=== PATIENT | female | born 1955 | race Caucasian/White ===

== ENCOUNTER 2016-11-22 12:38 | Emergency (ER) | payer OTHER ==
[~2016-11-22] VITALS: Ht 152.4 cm; Wt 65.5 kg
[~2016-11-22 12:38] MED LIST: ASPI81TA3 PO; ATEN50TA PO; SIMV20TA PO
[2016-11-22 13:55] VITALS: Ht 152.4 cm; Wt 65.5 kg
--- NOTE | 2016-11-22 14:14 | EN ---
Date/Time of Note Date/Time of Note DATE: 11/22/16 TIME: 14:13 ER Progress Note Patient was seen and examined in RME. Patient will be sent to ED2 for more evaluation LENARD TUCKER PA-C Nov 22, 2016 14:14
--- NOTE | 2016-11-22 15:27 | ERD ---
ER Documentation Chief Complaint Date/Time DATE: 11/22/16 TIME: 15:24 Chief Complaint RIGHT EAR PAIN HPI 61-year-old female with no history of diabetes comes emergency room with right ear pain that has been ongoing for months now. This patient states that she did have URI symptoms, she was treated with amoxicillin by her primary care physician, she subsequently developed right ear pain that is in the inner ear and is a pressure-like sensation that radiated to the back of her ear. She has not had any fevers, chills or drainage or trauma. No vomiting or diarrhea. ROS All systems reviewed and are negative except as per history of present illness. Medications Home Meds Active Scripts Cetirizine Hcl* (Zyrtec*) 10 Mg Capsule, 10 MG PO DAILY, #20 TAB Prov:LJ KENYON PA-C 11/22/16 Hydrocodone/Acetaminophen ([place] 5-325 Tablet) 1 Each Tablet, 1 TAB PO Q6H Y for PAIN, #15 TAB Prov:LJ KENYON PA-C 11/22/16 Amoxicillin/Potassium Clav (Amox-Clav 875-125 mg Tablet) 875-125 mg Tab, 1 TAB PO BID for 7 Days, #14 TAB Prov:LJ KENYON PA-C 11/22/16 Aspirin (Aspirin) 81 Mg Chew, 81 MG PO DAILY, #30 TAB Prov:LOBITO MEJIA MD 07/27/16 Reported Medications Atenolol* (Atenolol*) 50 Mg Tablet, 50 MG PO DAILY, #30 TAB 07/25/16 Simvastatin* (Zocor*) 20 Mg Tablet, 20 MG PO QHS, #30 TAB 07/25/16 Allergies Allergies: Coded Allergies: No Known Allergy (Unverified , 11/22/16) PMhx/Soc History of Surgery: Yes (RT EAR ) Anesthesia Reaction: No Hx Neurological Disorder: No Hx Respiratory Disorders: No Hx Cardiac Disorders: Yes (HTN) Hx Psychiatric Problems: No Hx Miscellaneous Medical Probl: No Hx Alcohol Use: No Hx Substance Use: No Hx Tobacco Use: Yes (3 cigaretts a day) Smoking Status: Current every day smoker Physical Exam Vitals Vital Signs Date Time Temp Pulse Resp B/P Pulse Ox O2 Delivery O2 Flow Rate FiO2 11/22/16 13:55 98.3 64 19 140/76 97 Physical Exam General: Well-developed, well-nourished. The patient appears in no acute distress. HEENT: Head is normocephalic, atraumatic. No scleral icterus. Pupils are equal , round, and reactive. Oral mucous membranes are moist. No pharyngeal erythema. Right TM is bulging, nonerythematous, no otorrhea, or drainage. No fever or chills. No distinct mastoid tenderness, diffuse tenderness over scalp superficially. Left ear is normal Neck: Supple. Nontender. Lungs: Clear to auscultation. Normal air movement. Heart: Regular rate and rhythm. S1 and S2 are normal. No murmurs, gallops, or rubs. Abdomen: Soft, nontender, nondistended. Bowel sounds are normoactive. Extremities: No clubbing or cyanosis. Normal pulses. Moving extremities x 4. No weakness. Neurologic: Alert and oriented 3. No focal deficits. Skin: Normal turgor. No rash or lesions. Results 24 hrs Current Medications Medications (Trade) Dose Ordered Sig/Mady Route PRN Reason Start Time Stop Time Status Last Admin Dose Admin Acetaminophen/ Hydrocodone Bitart ([place] (5/325)) 1 tab ONCE ONCE PO 11/22/16 15:30 11/22/16 15:31 DC 11/22/16 15:38 PROCEDURE: CT temporal bones without contrast CLINICAL INDICATION: Right ear pain TECHNIQUE: CT of the temporal bones without contrast was performed on a multidetector CT scanner, with multiplanar reformats. One or more of the following dose reduction techniques were used: Automated exposure control, adjustment in mA and / or kV according to patient size, use of iterative reconstructive technique. CTDIvol = 39 mGy and DLP = 378 mGy-cm. COMPARISON: None available FINDINGS: Right temporal bone: The external auditory canal is patent. The tympanic membrane is thin. The mastoid air cells and middle ear cavity are clear. There is a stapes prosthesis , and place the rest of the ossicles are intact. The scutum is intact. The bony labyrinth structures are within normal limits and the otic capsule is intact. The vestibular aqueduct is not enlarged. There is high-riding jugular bulb with small focal dehiscence posteriorly. There is no dehiscence into the middle ear. The internal auditory canal is normal in caliber. Left temporal bone: The external auditory canal is patent. The tympanic membrane is thin. The mastoid air cells and middle ear cavity are clear. The ossicles and scutum are intact. The bony labyrinth structures are within normal limits and the otic capsule is intact. The vestibular aqueduct is not enlarged. The internal auditory canal is normal in caliber. There are bilateral maxillary sinus air fluid levels, partial bilateral ethmoid air cell opacification with secretions seen on the right posteriorly and minimal left sphenoid sinus secretions. There is mucosal thickening at the right frontal recess. IMPRESSION: 1. Mastoids and middle ears clear bilaterally. 2. Right stapes prosthesis in place. 3. High-riding right jugular bulb with small focal dehiscence posteriorly. 4. Paranasal sinus disease described above. RPTAT: VV .Ta Warren MD, MD Date Time Electronically viewed and signed by .Ta Warren MD, MD on 11/22/2016 15:57 Procedures/MDM ED course: Patient was given [place] for pain. 61-year-old female comes to the ER with right-sided ear pain for a month now, her primary care physician has referred her to the ER. She received a CT scan of her orbit temporal bones, there is no evidence of mastoiditis, there is sinus disease described. Patient will be treated with Augmentin as well as [place] and loratadine. There are no signs of sepsis, meningitis, deep space infection. Departure Diagnosis: Primary Impression: Sinusitis Condition: LJ Darden PA-C Nov 22, 2016 15:27
[2016-11-22] MEDS ORDERED: HYDROCODONE/APAP (5/325) TAB PO ONE (15:30)
--- NOTE | 2016-11-22 15:57 | RADRPT ---
PROCEDURE: CT temporal bones without contrast CLINICAL INDICATION: Right ear pain TECHNIQUE: CT of the temporal bones without contrast was performed on a multidetector CT scanner, with multiplanar reformats. One or more of the following dose reduction techniques were used: Autom ated exposure control, adjustment in mA and / or kV according to patient size, use of iterative waqas nstructive technique. CTDIvol = 39 mGy and DLP = 378 mGy-cm. COMPARISON: None available FINDINGS: Right temporal bone: The external auditory canal is patent. The tympanic membrane is thin. The mastoid air cells and mi ddle ear cavity are clear. There is a stapes prosthesis, and place the rest of the ossicles are int act. The scutum is intact. The bony labyrinth structures are within normal limits and the otic cap jeremy is intact. The vestibular aqueduct is not enlarged. There is high-riding jugular bulb with sma ll focal dehiscence posteriorly. There is no dehiscence into the middle ear. The internal auditory canal is normal in caliber. Left temporal bone: The external auditory canal is patent. The tympanic membrane is thin. The mastoid air cells and mi ddle ear cavity are clear. The ossicles and scutum are intact. The bony labyrinth structures are w ithin normal limits and the otic capsule is intact. The vestibular aqueduct is not enlarged. The in ternal auditory canal is normal in caliber. There are bilateral maxillary sinus air fluid levels, partial bilateral ethmoid air cell opacificati on with secretions seen on the right posteriorly and minimal left sphenoid sinus secretions. There is mucosal thickening at the right frontal recess. IMPRESSION: 1. Mastoids and middle ears clear bilaterally. 2. Right stapes prosthesis in place. 3. High-riding right jugular bulb with small focal dehiscence posteriorly. 4. Paranasal sinus disease described above. RPTAT: VV .Ta Warren MD, MD Date Time Electronically viewed and signed by .Ta Warren MD, MD on 11/22/2016 15:57 .O/
[2016-11-22] MEDS ORDERED: AMOX1TAB10 PO (16:06)
[2016-11-22] MEDS ORDERED: HYDR-906 PO (16:06)
[2016-11-22] MEDS ORDERED: CETI10CA PO (16:07)
[2016-11-22 16:29] VITALS: BP 135/73; PULSE 79; RESP 16
== END 2016-11-22 16:30 | disposition home or self-care (01) ==
LOC: FTE 12:38
DX: J01.90 Acute sinusitis, unspecified (principal); I10 Essential (primary) hypertension; F17.210 Nicotine dependence, cigarettes, uncomplicated; Z79.82 Long term (current) use of aspirin
CPT/HCPCS: 70480; Z7502; Z7610

== ENCOUNTER 2017-08-11 08:52 | Day surgery (SDC) | payer OTHER ==
[2017-08-11] VITALS (33 sets, daily range): BP systolic 122–147; BP diastolic 63–75; PULSE 58–64; RESP 11–18; Ht 152.4 cm; Wt 66.4 kg
[~2017-08-11] VITALS: Ht 152.4 cm; Wt 66.4 kg
[~2017-08-11 08:52] MED LIST changes: +AMOX1TAB10 PO; +CETI10CA PO; +HYDR-906 PO
[2017-08-11] MEDS ORDERED: ATEN100T PO (09:07)
[2017-08-11] MEDS ORDERED: SOD CHLORIDE 0.45% 1,000 ML IV ONE (09:30)
[2017-08-11] MEDS ORDERED: FAMOTIDINE 20 MG TAB PO ONE (09:30)
[2017-08-11] MEDS ORDERED: DIPHENHYDRAMINE 50 MG CAP PO ONE (09:30)
[2017-08-11] MEDS ORDERED: DIAZEPAM 5 MG TAB PO ONE (09:30)
[2017-08-11] MEDS ORDERED: LIDOCAINE 1% (MDV) 20 ML INJ ONE (09:39)
[2017-08-11] MEDS ORDERED: MIDAZOLAM 1 MG/ML 2 ML INJ ONE (09:39)
[2017-08-11] MEDS ORDERED: HEPARIN 1000 UNITS/ML 10 ML INJ ONE (09:39)
[2017-08-11] MEDS ORDERED: FENTAnyl 50 MCG/ML VIAL ONE (09:39)
[2017-08-11] MEDS ORDERED: NITROGLYCERIN (IC) 100 MCG/ML INJ ONE (09:39)
[2017-08-11] MEDS ORDERED: VERAPAMIL 5 MG INJ ONE (09:39)
[2017-08-11 09:42] LABS: BASOPHILS % 0.5 % (0.0-2.0); EOSINOPHILS # 0.5 10^3/ul (0.0-0.5); HEMATOCRIT 46.7 % (37.0-47.0); HEMOGLOBIN 15.2 g/dl (12.0-16.0); LYMPHOCYTES # 2.6 10^3/ul (0.8-2.9); LYMPHOCYTES % 33.1 % (15.0-51.0); MEAN CORPUSCULAR HEMOGLOBIN 28.6 pg (29.0-33.0); MEAN CORPUSCULAR HGB CONC 32.5 g/dl (32.0-37.0); MEAN CORPUSCULAR VOLUME 87.9 fl (82.0-101.0); MEAN PLATELET VOLUME 10.7 fl (7.4-10.4); MONOCYTE # 0.7 10^3/ul (0.3-0.9); MONOCYTES % 8.2 % (0.0-11.0); NEUTROPHIL # 4.1 10^3/ul (1.6-7.5); NEUTROPHILS % 51.9 % (39.0-77.0); PLATELET COUNT 272 10^3/UL (140-415); RED BLOOD COUNT 5.31 10^6/ul (4.20-5.40); RED CELL DISTRIBUTION WIDTH 13.1 % (11.5-14.5); WHITE BLOOD COUNT 7.9 10^3/ul (4.8-10.8)
--- NOTE | 2017-08-11 10:06 | RADRPT ---
PROCEDURE: XR Chest 1 View. CLINICAL INDICATION: Abnormal breath sounds, preop. TECHNIQUE: AP view of the chest was obtained. COMPARISON: CR CHEST 07/25/2016 FINDINGS: The cardiomediastinal silhouette is within normal limits. Atelectasis is noted at the lung bases. No consolidations are identified. No pneumothorax is seen. Osseous structures are intact. IMPRESSION: Atelectasis at the lung bases. RPTAT: AA .John Thomas MD, Date Time Electronically viewed and signed by .John Thomas MD, on 08/11/2017 10:06 .P/
[2017-08-11 10:07] LABS: INR 0.95; PARTIAL THROMBOPLASTIN TIME 26.3 Sec (25.0-35.0); PROTIME 12.7 Sec (12.2-14.2)
[2017-08-11 10:12] LABS: CHOL/HDL RATIO 6.3 RATIO
[2017-08-11 10:20] LABS: CREATININE 1.16 mg/dl (0.44-1.00); POTASSIUM 3.9 mmol/L (3.5-5.1)
[2017-08-11] MEDS ORDERED: SOD CHLORIDE 0.9% 1,000 ML IV SCH (10:55)
[2017-08-11] MEDS ORDERED: ACETAMINOPHEN 325 MG TAB PO PRN (11:00)
[2017-08-11] MEDS ORDERED: AL HYDROX/MG HYDROX/SIMETH 30 ML CUP PO PRN (11:00)
[2017-08-11] MEDS ORDERED: ONDANSETRON 4 MG INJ IV PRN (11:00)
[2017-08-11] MEDS ORDERED: morphine 2 MG INJ IV PRN (11:00)
--- NOTE | 2017-08-11 11:04 | SIPON ---
Date/Time of Note Date/Time of Note DATE: 08/11/17 TIME: 11:02 Operative Report Preoperative Diagnosis 1. Chest pain 2.abnl MPI Postoperative Diagnosis 1.NOn-obstructive cad Operation/Procedure Performed 1.[facility] Surgeon see signature line intellectual property legal assistant 1.Aram Anesthesia: moderate sedation Estimated blood loss: minimal Transfusion Required none Specimen NA Grafts/Implants none Complications none RICHARD SPRINGER Aug 11, 2017 11:03
--- NOTE | 2017-08-11 12:06 | CARRPT ---
DATE OF PROCEDURE: 08/11/2017 TYPE OF PROCEDURE: 1. Left heart catheterization. 2. Coronary angiography. 3. Left ventriculogram. ATTENDING PHYSICIAN: Richard Kelly MD REFERRING PHYSICIAN: Dr. Ayaan Gillette. INDICATION: Chest pain with positive stress test findings for anterior ischemia, high risk marker f or cardiovascular events. TYPE OF ANESTHESIA: Conscious local. BRIEF HISTORY: Ms. Obregon is a 62-year-old female with history of hypertension, dyslipidemia who ini tially presented with complaints of substernal chest pain. The patient subsequently had a cardiac s tress test revealing a preserved EF anterior ischemia. Given these findings, the patient referred f or and presents today in order to undergo left heart catheterization to assess for the possibility o f significant obstructive chest pain and subsequent positive stress test findings. DESCRIPTION OF PROCEDURE: After informed consent was obtained, the patient was brought [facility] cardiac catheterization lab where his right radial area was prepped and draped in u sual sterile fashion, 2% lidocaine to right radial area was achieved with adequate anesthesia. Ted mckeon modified Seldinger technique, the right radial artery was cannulated and a 5-Bulgarian JL3.5 catheter used in an attempt to cannulate the left main coronary ostium unsuccessfully was exchanged for a JL 3 was used to selectively cannulate the left main, after which contrast injection, multiple views of the left coronary arterial system were obtained. A JL3 was removed over a guidewire and a JR4 was used to cannulate the right coronary arterial ostium. With contrast injection, multiple views of th e right coronary system obtained. JR4 was removed over a guidewire and a 6-Bulgarian pigtail was passe d in the aorta and placed in the left ventricle. Using a power injector, 20 mL of contrast were inj ected opacifying the left ventricle. Pulled back across the aortic valve to assess for significant gradient, which there was not and removed. Subsequently, at this time, this completed the procedure . The patient's sheath was removed. TR band was applied. There were no noted complications. FINDINGS: Coronary angiography: Left main 4.5 mm, no significant stenoses. Circumflex: Circumflex proximall y is a 3.5 mm vessel in its midportion has a 20% stenosis. The circumflex is a codominant vessel an d therefore gives off a left-sided PDA and posterolateral branch, each approximately 2 mm with no si gnificant focal stenoses. The LAD proximally is a 3.5 mm vessel in its midportion has a 20% stenosi s around the apex. There are proximal and mid branching diagonals, each sub 2 mm vessels, with no s ignificant focal stenoses. The right coronary artery proximally is a 3 mm vessel and has a 20% sten osis shortly after its take off. The remainder of the right coronary artery is free of significant focal stenoses. It does become a very small caliber vessel and is codominant, and therefore does gi ve off a small PDA sub 2 mm vessels and a posterolateral branch sub 2 mm vessels with no significant focal stenosis. Left ventriculogram revealed left ventricular ejection fraction of 60% with LVEDP of 29 pre-LV gram, 32 post-LV gram, 1+ mitral regurgitation. No significant aortic stenosis by gradient. TOTAL FLUOROSCOPY TIME: 5.2 minutes. TOTAL CONTRAST: 75 mL. IMPRESSION: 1. Mild nonobstructive coronary artery disease. 2. Preserved left ventricular systolic function. 3. Elevated left heart filling pressure. 4. No significant aortic stenosis by gradient. 5. 1+ mitral regurgitation. RECOMMENDATIONS: 1. At this time, would maximize medical management. 2. Aggressive risk factor reduction. 3. The patient will be readmitted to the same day surgery center for post-cath observation and cont inued management of symptoms with probable discharge later this afternoon. Dictated By: RICHARD LYNCH/ROSA Conf#: [id number] DID#: [id number] CC: AYAAN GILLETTE MD;*End*
--- NOTE | 2017-08-11 16:57 | RADRPT ---
Vent Rate: 57 bpm RR Interval: 0 msec [place] Interval: 162 msec QRS Duration: 84 msec QT Interval: 432 msec QTC Interval: 420 msec P-R-T [place]: 46 - 64 - 41 degrees Sinus bradycardia Otherwise normal ECG Electronically Signed By: Clifford Kelly [id number]
== END 2017-08-11 18:00 | disposition home or self-care (01) ==
LOC: SDS 08:52 → EDUNIT# 10:30 → SDS 18:00
PROVIDERS: ATTEND Internal Medicine
DX: R07.9 Chest pain, unspecified (principal); I25.10 Atherosclerotic heart disease of native coronary artery without angina pectoris; I34.0 Nonrheumatic mitral (valve) insufficiency
CPT/HCPCS: 71010; 80048; 80061; 85025; 85610; 85730; 93005; 93458; C1887; J1644; J2250; J3010; Z7610

== ENCOUNTER 2018-03-21 11:53 | Day surgery (SDC) | END 2018-03-21 19:21 | disposition home or self-care (01) ==